=== PATIENT | female | born 1940 | race Caucasian/White ===

== ENCOUNTER 2018-03-30 13:50 | Inpatient (IN) | payer MEDICARE, OTHER | END 2018-04-09 18:20 | LOC: WEST WING 04-04 12:04 → ER 13:50 → TELE-WESTW 03-31 06:41 → OVERFLOW 17:24 → WEST WING 22:22 | PROC: 0WQF0ZZ Repair Abdominal Wall, Open Approach (ICD-10-PCS; principal; 2018-03-31 14:31) | DX: K43.2 Incisional hernia without obstruction or gangrene (principal); N39.0 Urinary tract infection, site not specified; I10 Essential (primary) hypertension; E11.9 Type 2 diabetes mellitus without complications; E03.9 Hypothyroidism, unspecified; E66.9 Obesity, unspecified; M19.012 Primary osteoarthritis, left shoulder ==

== ENCOUNTER 2018-06-02 06:58 | Emergency (ER) | payer MEDICARE, OTHER ==
[~2018-06-02] VITALS: Ht 162.6 cm; Wt 81.6 kg
[~2018-06-02 06:58] MED LIST: LEVO25TA6 PO; METF-370 PO; METO25TA4 PO; ONDA-155 PO
[2018-06-02 08:30] LABS: Urine Bacteria FEW /hpf (None Seen); Urine Blood Negative /uL (Negative); Urine Hyaline Cast FEW /lpf (0 - 2); Urine Mucus FEW (None Seen); Urine Specific Gravity 1.019 (1.001-1.035); Urine WBC 4 /hpf (0 - 5)
[2018-06-02 08:31] LABS: Basophils # (auto) 0.1 uL; Basophils % (auto) 0.8 % (0.0-2.0); Eosinophils # (auto) 0 uL; Eosinophils % (auto) 0.5 % (0.0-7.0); Hematocrit 33.4 % (36.0-46.0); Hemoglobin 10.7 g/dL (12.2-16.2); Lymphocytes % (auto) 10.7 % (10.0-50.0); Mean Corpuscular Hemoglobin 27.9 pg (28.0-32.0); Mean Corpuscular Hgb Conc. 31.9 g/dL (32.0-36.0); Mean Corpuscular Volume 87.5 fL (80.0-100.0); Monocytes # (auto) 0.4 uL; Monocytes % (auto) 4.2 % (0.0-12.0); Neutrophils # (auto) 8.1 uL; Neutrophils % (auto) 83.8 % (37.0-80.0); Platelet Count (auto) 252 10^3/uL (140-450); Red Blood Cells 3.82 10^6/uL (4.0-5.20); Red Cell Distribution Width 15.8 % (11.8-14.3); White Blood Cell 9.6 10^3/uL (4.4-10.8)
[2018-06-02 08:41] LABS: Albumin 3.1 g/dL (3.4-5.0); Calcium 8.6 mg/dL (8.5-10.1); Potassium 4.4 mmol/L (3.5-5.1)
[2018-06-02 08:44] LABS: BUN/Creatinine Ratio 17.2; Bilirubin, Total 0.4 mg/dL (0.2-1.0); Total Protein 7.6 g/dL (6.4-8.2)
[2018-06-02] MEDS ORDERED: SODIUM CHLORIDE 0.9% 1,000 ML IV ONE (09:48)
[2018-06-02] MEDS ORDERED: GASTROGRAFIN 30 ML SOL ONE (09:56)
[2018-06-02] MEDS ORDERED: IOHEXOL 300 MG/ML 100ML BOTTLE IJ ONE ×2 (09:56→12:12)
[2018-06-02] MEDS ORDERED: HYDROmorphone HCL 2 MG/ML VL IV ONE (10:00)
[2018-06-02] MEDS ORDERED: PROMETHAZINE HCL 25 MG/ML 1ML IV PRN (10:00)
[2018-06-02 10:08] LABS: Magnesium 1.1 mg/dL (1.6-2.6)
[2018-06-02] MEDS ORDERED: cefTRIAXone 1GM/50ML D5W 50 ML IV ONE (12:30)
[2018-06-02] MEDS: MAGNESIUM SULFATE 1GM/100ML 100 ML IV SCH ×3 (12:54→14:07)
[2018-06-02 14:16] VITALS: BP 122/75
== END 2018-06-02 14:16 | disposition home or self-care (01) ==
LOC: ER 06:58
DX: N39.0 Urinary tract infection, site not specified (principal); E83.42 Hypomagnesemia; K46.9 Unspecified abdominal hernia without obstruction or gangrene; E11.9 Type 2 diabetes mellitus without complications; I10 Essential (primary) hypertension; E07.9 Disorder of thyroid, unspecified; Z98.51 Tubal ligation status
CPT/HCPCS: 36415; 74177; 80053; 81001; 83690; 83735; 84443; 85025; 93005; 96361; 96374; 96375; 99284; J1170; J2550; J3475; J7030; Q9963; Q9967

== ENCOUNTER 2021-01-13 16:11 | Inpatient (IN) | payer MEDICARE, OTHER ==
[~2021-01-13] VITALS: Ht 162.6 cm; Wt 108.9 kg
[~2021-01-13 16:11] MED LIST changes: +METO25TA36 PO; -METO25TA4 PO
[2021-01-13] MEDS ORDERED: PIPERACILLIN-TAZOB 3.375GM 100 ML IV ONE (17:45)
[2021-01-13] MEDS ORDERED: metroNIDAZOLE 500MG/100ML 100 ML IV ONE (17:45)
[2021-01-13 17:49] LABS: Basophils # (auto) 0.1 10 ^3/uL (0-0.2); Basophils % (auto) 1.8 % (0.0-2.0); Eosinophils # (auto) 0.1 10 ^3/uL (0-0.8); Eosinophils % (auto) 1.7 % (0.0-7.0); Hematocrit 32.2 % (36.0-46.0); Hemoglobin 10.6 g/dL (12.2-16.2); Lymphocytes # (auto) 1.3 10 ^3/uL (0.4-5.4); Lymphocytes % (auto) 16.8 % (10.0-50.0); Mean Corpuscular Hgb Conc. 32.9 g/dL (32.0-36.0); Mean Corpuscular Volume 97.4 fL (80.0-100.0); Monocytes # (auto) 0.4 10 ^3/uL (0-1.3); Monocytes % (auto) 4.8 % (0.0-12.0); Neutrophils # (auto) 5.8 10 ^3/uL (1.6-8.6); Neutrophils % (auto) 74.9 % (37.0-80.0); Nucleated Red Blood Cells % 0.1 %; Red Blood Cells 3.31 10^6/uL (4.0-5.20); Red Cell Distribution Width 16.4 % (11.8-14.3); White Blood Cell 7.8 10^3/uL (4.4-10.8)
[2021-01-13 18:01] LABS: INR 0.99 (0.9-1.15); Partial Thromboplastin Time 27.6 sec (23.6-33.0)
[2021-01-13 18:04] LABS: Albumin 3.1 g/dL (3.4-5.0); Anion Gap 5 (5-15); BUN/Creatinine Ratio 17.9; Blood Urea Nitrogen 19 mg/dL (7-18); Calcium 9.3 mg/dL (8.5-10.1); Carbon Dioxide 20 mmol/L (21-32); Chloride 110 mmol/L (98-107); GFR African American 64 mL/min; GFR Non-African American 53 mL/min; Glucose 181 mg/dL (74-106); Lipase 75 U/L (73-393); Potassium 4.9 mmol/L (3.5-5.1); Sodium 135 mmol/L (136-145)
[2021-01-13 18:13] LABS: Alanine Aminotransferase 27 U/L (13-56); Alkaline Phosphatase 112 U/L (45-117); Aspartate Aminotransferase 15 U/L (15-37); Bilirubin, Total 0.4 mg/dL (0.2-1.0); Total Protein 7.4 g/dL (6.4-8.2)
[2021-01-13] MEDS ORDERED: MIDAZOLAM HCL 2MG/2ML 2ml VIAL (1mg/ml) ONE (18:35)
[2021-01-13] MEDS ORDERED: ROCURONIUM 10MG/ML 10ML VIAL IV ONE (18:36)
[2021-01-13] MEDS ORDERED: fentaNYL CITRATE 5 ML ONE (18:36)
[2021-01-13] MEDS ORDERED: PROPOFOL 10 MG/ML 20 ML IV ONE (18:58)
[2021-01-13] MEDS ORDERED: ONDANSETRON HCL 4 MG/2 ML VIAL ONE (18:58)
[2021-01-13] MEDS ORDERED: LIDOCAINE 2% (LOCAL ANESTH.) PF 5ml SDV ONE (18:58)
[2021-01-13] MEDS ORDERED: cefTRIAXone 1GM/50ML D5W 50 ML IV ONE (20:00)
[2021-01-13] MEDS ORDERED: D5W/SOD CHL 0.45%/KCL 20MEQ 1,000 ML IV ONE (20:00)
[2021-01-13] MEDS ORDERED: HYDROmorphone HCL 2 MG/ML VL IV ONE (20:00)
[2021-01-13] MEDS ORDERED: NEOSTIGMINE 1 MG/ML INJ (10mg/10ML VIAL) ONE (20:14)
[2021-01-13] MEDS ORDERED: GLYCOPYRROLATE 0.2 MG/ML 1ML VIAL ONE (20:14)
[2021-01-13] MEDS ORDERED: HYDROmorphone HCL 2 MG/ML VL IV PRN ×2 (20:30)
[2021-01-13] MEDS ORDERED: ONDANSETRON HCL 4 MG/2 ML VIAL IV PRN (20:30)
[2021-01-13] MEDS ORDERED: NITROGLYCERIN 0.4 MG SL TAB SL PRN (20:45)
[2021-01-13] MEDS ORDERED: MORPHINE SULFATE INJECTION 2 MG/ML SYRG IV PRN (20:45)
[2021-01-13 21:21] VITALS: BP 149/78
[2021-01-13 22:00] VITALS: BP 149/78
[2021-01-14] MEDS ORDERED: HYDR-4833 (01:34)
[2021-01-14 05:00] VITALS: BP 138/77
[2021-01-14 08:00] VITALS: BP 156/81
[2021-01-14 08:30] VITALS: BP 148/88
[2021-01-14] MEDS ORDERED: ONDANSETRON HCL 4 MG/2 ML VIAL IV PRN (11:45)
[2021-01-14] MEDS ORDERED: HYDROmorphone HCL 2 MG/ML VL IV ONE (11:45)
[2021-01-14] MEDS ORDERED: FAMOTIDINE (10MG/ML) 2ML VL IV ONE (11:45)
[2021-01-14] MEDS ORDERED: DEXTROSE (50%) 50ML SYRG IV PRN (11:45)
[2021-01-14 12:30] VITALS: BP_SYST 152; BP_SYST 153; BP_DIAS 85; BP_DIAS 95
[2021-01-14] MEDS: ACCU-CHEK COMFORT CURVE STRIP VI SCH ×3 (13:30→23:55)
[2021-01-14 13:55] LABS: Urine Bacteria NONE SEEN /hpf (None Seen); Urine Blood Negative /uL (Negative); Urine Mucus FEW (None Seen); Urine Specific Gravity 1.018 (1.001-1.035); Urine WBC 1 /hpf (0 - 5)
[2021-01-14] MEDS: metroNIDAZOLE 500MG/100ML 100 ML IV SCH ×2 (13:59→21:18)
[2021-01-14] MEDS: SODIUM CHLORIDE 0.9% 1,000 ML IV SCH (13:59)
[2021-01-14] MEDS: InsuLIN REG 1unit/0.01ml Soln (100units/ml) SC SCH ×3 (14:39→23:55)
[2021-01-14] MEDS: LABETALOL HCL 5 MG/ML 4ML SYRINGE IV PRN (16:19)
[2021-01-14] MEDS: HYDROmorphone HCL 2 MG/ML VL IV PRN ×2 (16:20→21:19)
[2021-01-14 17:00] VITALS: BP_SYST 151; BP_SYST 170; BP_DIAS 81; BP_DIAS 87
[2021-01-14 22:00] VITALS: BP 148/69
[2021-01-15] MEDS: HYDROmorphone HCL 2 MG/ML VL IV PRN ×4 (01:25→21:34)
[2021-01-15 05:00] VITALS: BP 156/74
[2021-01-15] MEDS: InsuLIN REG 1unit/0.01ml Soln (100units/ml) SC SCH ×4 (06:16→23:27)
[2021-01-15] MEDS: metroNIDAZOLE 500MG/100ML 100 ML IV SCH ×3 (06:16→21:34)
[2021-01-15] MEDS: SODIUM CHLORIDE 0.9% 1,000 ML IV SCH ×2 (06:17→14:03)
[2021-01-15] MEDS: ACCU-CHEK COMFORT CURVE STRIP VI SCH ×4 (06:17→23:28)
[2021-01-15 06:46] LABS: Basophils # (auto) 0 10 ^3/uL (0-0.2); Basophils % (auto) 0.4 % (0.0-2.0); Eosinophils # (auto) 0 10 ^3/uL (0-0.8); Eosinophils % (auto) 0.1 % (0.0-7.0); Hematocrit 27.1 % (36.0-46.0); Lymphocytes # (auto) 1.1 10 ^3/uL (0.4-5.4); Lymphocytes % (auto) 10.5 % (10.0-50.0); Mean Corpuscular Hemoglobin 32.4 pg (28.0-32.0); Mean Corpuscular Volume 98.1 fL (80.0-100.0); Monocytes # (auto) 1.3 10 ^3/uL (0-1.3); Monocytes % (auto) 12.1 % (0.0-12.0); Neutrophils # (auto) 8.1 10 ^3/uL (1.6-8.6); Neutrophils % (auto) 76.9 % (37.0-80.0); Nucleated Red Blood Cells % 0.1 %; Red Blood Cells 2.76 10^6/uL (4.0-5.20); Red Cell Distribution Width 15.9 % (11.8-14.3); White Blood Cell 10.6 10^3/uL (4.4-10.8)
[2021-01-15 07:02] LABS: Calcium 8.2 mg/dL (8.5-10.1); Potassium 4.3 mmol/L (3.5-5.1)
[2021-01-15 07:08] LABS: Albumin 2.3 g/dL (3.4-5.0); BUN/Creatinine Ratio 15.2; Bilirubin, Total 0.6 mg/dL (0.2-1.0); Total Protein 6.1 g/dL (6.4-8.2)
[2021-01-15 08:00] VITALS: BP 155/77
[2021-01-15 09:00] VITALS: BP 155/77
[2021-01-15] MEDS: FAMOTIDINE (10MG/ML) 2ML VL IV SCH (09:27)
[2021-01-15] MEDS: cefTRIAXone 1GM/50ML D5W 50 ML IV SCH (09:27)
[2021-01-15] MEDS: LABETALOL HCL 5 MG/ML 4ML SYRINGE IV PRN ×2 (10:40→18:03)
[2021-01-15 13:00] VITALS: BP 150/66
[2021-01-15] MEDS ORDERED: KETOROLAC TROMETH 30 MG/ML 1ML VIAL IV ONE (13:15)
[2021-01-15 17:00] VITALS: BP 155/78
[2021-01-15 21:00] VITALS: BP 149/74
[2021-01-15] MEDS: KETOROLAC TROMETH 30 MG/ML 1ML VIAL IV SCH (21:34)
[2021-01-16] MEDS: SODIUM CHLORIDE 0.9% 1,000 ML IV SCH ×2 (01:39→17:19)
[2021-01-16 05:00] VITALS: BP 147/82
[2021-01-16] MEDS: ACCU-CHEK COMFORT CURVE STRIP VI SCH ×3 (05:57→17:25)
[2021-01-16] MEDS: metroNIDAZOLE 500MG/100ML 100 ML IV SCH ×3 (05:57→23:00)
[2021-01-16] MEDS: KETOROLAC TROMETH 30 MG/ML 1ML VIAL IV SCH (05:57)
[2021-01-16] MEDS: InsuLIN REG 1unit/0.01ml Soln (100units/ml) SC SCH ×3 (06:13→17:25)
[2021-01-16 06:38] LABS: Basophils # (auto) 0 10 ^3/uL (0-0.2); Eosinophils # (auto) 0.1 10 ^3/uL (0-0.8); Eosinophils % (auto) 0.8 % (0.0-7.0); Mean Corpuscular Volume 101.3 fL (80.0-100.0); Red Cell Distribution Width 16.1 % (11.8-14.3)
[2021-01-16 06:45] LABS: Basophils % (auto) 0.4 % (0.0-2.0); Hematocrit 26.8 % (36.0-46.0); Hemoglobin 8.3 g/dL (12.2-16.2); Lymphocytes % (auto) 8.5 % (10.0-50.0); Mean Corpuscular Hemoglobin 31.6 pg (28.0-32.0); Mean Corpuscular Hgb Conc. 31.1 g/dL (32.0-36.0); Monocytes % (auto) 8.1 % (0.0-12.0); Neutrophils # (auto) 9.8 10 ^3/uL (1.6-8.6); Neutrophils % (auto) 82.2 % (37.0-80.0); Potassium 4.5 mmol/L (3.5-5.1); Red Blood Cells 2.64 10^6/uL (4.0-5.20); White Blood Cell 11.9 10^3/uL (4.4-10.8)
[2021-01-16 06:48] LABS: BUN/Creatinine Ratio 19.8
[2021-01-16 08:00] VITALS: BP 160/76
[2021-01-16] MEDS: cefTRIAXone 1GM/50ML D5W 50 ML IV SCH (09:38)
[2021-01-16] MEDS: FAMOTIDINE (10MG/ML) 2ML VL IV SCH (09:38)
[2021-01-16] MEDS: LABETALOL HCL 5 MG/ML 4ML SYRINGE IV PRN (09:39)
[2021-01-16] MEDS: HYDROmorphone HCL 2 MG/ML VL IV PRN ×2 (13:54→21:30)
[2021-01-16 17:28] VITALS: BP 135/71
[2021-01-16 20:00] VITALS: BP 137/75
[2021-01-16 22:00] VITALS: BP 137/76
[2021-01-17] MEDS: metroNIDAZOLE 500MG/100ML 100 ML IV SCH ×3 (05:53→22:27)
[2021-01-17] MEDS: InsuLIN REG 1unit/0.01ml Soln (100units/ml) SC SCH ×4 (06:00→19:12)
[2021-01-17] MEDS: HYDROmorphone HCL 2 MG/ML VL IV PRN ×4 (06:10→21:07)
[2021-01-17] MEDS: ACCU-CHEK COMFORT CURVE STRIP VI SCH ×4 (06:17→18:00)
[2021-01-17 06:22] LABS: Basophils # (auto) 0.1 10 ^3/uL (0-0.2); Basophils % (auto) 0.6 % (0.0-2.0); Eosinophils # (auto) 0.3 10 ^3/uL (0-0.8); Eosinophils % (auto) 2.7 % (0.0-7.0); Lymphocytes # (auto) 1.1 10 ^3/uL (0.4-5.4); Lymphocytes % (auto) 10.7 % (10.0-50.0); Mean Corpuscular Hemoglobin 32.1 pg (28.0-32.0); Mean Corpuscular Hgb Conc. 32.1 g/dL (32.0-36.0); Mean Corpuscular Volume 100.1 fL (80.0-100.0); Monocytes # (auto) 0.7 10 ^3/uL (0-1.3); Neutrophils # (auto) 8.2 10 ^3/uL (1.6-8.6); Nucleated Red Blood Cells % 0.2 %; Red Cell Distribution Width 15.7 % (11.8-14.3); White Blood Cell 10.4 10^3/uL (4.4-10.8)
[2021-01-17] MEDS: SODIUM CHLORIDE 0.9% 1,000 ML IV SCH (06:25)
[2021-01-17 06:51] LABS: Calcium 8.2 mg/dL (8.5-10.1); Potassium 4.3 mmol/L (3.5-5.1)
[2021-01-17 06:55] LABS: BUN/Creatinine Ratio 26.7
[2021-01-17 09:00] VITALS: BP 144/71
[2021-01-17] MEDS: cefTRIAXone 1GM/50ML D5W 50 ML IV SCH (09:51)
[2021-01-17] MEDS: FAMOTIDINE (10MG/ML) 2ML VL IV SCH (09:51)
[2021-01-17 17:00] VITALS: BP 143/75
[2021-01-17] MEDS ORDERED: PANTOPRAZOLE 40 MG/10 ML VIAL INJ IV ONE (18:45)
[2021-01-17 20:00] VITALS: BP 137/71
[2021-01-17 22:00] VITALS: BP 137/71
[2021-01-18] MEDS: ACCU-CHEK COMFORT CURVE STRIP VI SCH ×5 (00:18→22:18)
[2021-01-18] MEDS: InsuLIN REG 1unit/0.01ml Soln (100units/ml) SC SCH ×5 (00:22→22:22)
[2021-01-18 05:00] VITALS: BP 143/78
[2021-01-18] MEDS: metroNIDAZOLE 500MG/100ML 100 ML IV SCH ×3 (06:00→22:17)
[2021-01-18 07:09] LABS: Basophils # (auto) 0.1 10 ^3/uL (0-0.2); Basophils % (auto) 0.7 % (0.0-2.0); Eosinophils # (auto) 0.3 10 ^3/uL (0-0.8); Eosinophils % (auto) 3.2 % (0.0-7.0); Hematocrit 23.4 % (36.0-46.0); Hemoglobin 7.7 g/dL (12.2-16.2); Lymphocytes # (auto) 1.4 10 ^3/uL (0.4-5.4); Lymphocytes % (auto) 16.5 % (10.0-50.0); Mean Corpuscular Hemoglobin 32.9 pg (28.0-32.0); Mean Corpuscular Hgb Conc. 32.8 g/dL (32.0-36.0); Mean Corpuscular Volume 100.1 fL (80.0-100.0); Monocytes # (auto) 0.7 10 ^3/uL (0-1.3); Monocytes % (auto) 8.4 % (0.0-12.0); Neutrophils % (auto) 71.2 % (37.0-80.0); Nucleated Red Blood Cells % 0.1 %; Red Blood Cells 2.34 10^6/uL (4.0-5.20); Red Cell Distribution Width 15.5 % (11.8-14.3); White Blood Cell 8.4 10^3/uL (4.4-10.8)
[2021-01-18 07:16] LABS: Calcium 8.3 mg/dL (8.5-10.1); Potassium 3.8 mmol/L (3.5-5.1)
[2021-01-18 09:00] VITALS: BP 138/101
[2021-01-18] MEDS ORDERED: BRIM0.1S3 (09:30)
[2021-01-18] MEDS ORDERED: ATOR20TA50 PO (09:30)
[2021-01-18] MEDS ORDERED: SITA50TA PO (09:30)
[2021-01-18] MEDS ORDERED: LISI20TA28 PO (09:30)
[2021-01-18] MEDS: cefTRIAXone 1GM/50ML D5W 50 ML IV SCH (09:39)
[2021-01-18] MEDS ORDERED: PANTOPRAZOLE 40 MG/10 ML VIAL INJ IV SCH (10:00)
[2021-01-18] MEDS: HYDROmorphone HCL 2 MG/ML VL IV PRN (11:54)
[2021-01-18 13:00] VITALS: BP 155/81
[2021-01-18 17:00] VITALS: BP 155/88
[2021-01-18] MEDS ORDERED: HYDROcodone-ACET 5/325MG TAB PO PRN (18:00)
[2021-01-18] MEDS ORDERED: LISINOPRIL 20 MG TAB PO ONE (19:00)
[2021-01-18 22:00] VITALS: BP 143/71
[2021-01-18] MEDS: ATORVASTATIN 20 MG TAB PO SCH (22:17)
[2021-01-18] MEDS: METOPROLOL TARTRATE 25 MG TAB PO SCH (22:18)
[2021-01-19 02:29] LABS: Hematocrit 22.6 % (36.0-46.0); Hemoglobin 7.5 g/dL (12.2-16.2)
[2021-01-19] MEDS: HYDROmorphone HCL 2 MG/ML VL IV PRN ×3 (04:48→22:25)
[2021-01-19 05:00] VITALS: BP 161/80
[2021-01-19 05:50] LABS: Hemoglobin 7.9 g/dL (12.2-16.2)
[2021-01-19 05:53] LABS: Hematocrit 24.1 % (36.0-46.0)
[2021-01-19] MEDS: InsuLIN REG 1unit/0.01ml Soln (100units/ml) SC SCH ×4 (06:00→22:25)
[2021-01-19] MEDS: ACCU-CHEK COMFORT CURVE STRIP VI SCH ×4 (06:01→22:24)
[2021-01-19] MEDS: metroNIDAZOLE 500MG/100ML 100 ML IV SCH ×3 (06:02→22:23)
[2021-01-19 09:00] VITALS: BP 146/70
[2021-01-19] MEDS: METOPROLOL TARTRATE 25 MG TAB PO SCH ×2 (09:29→22:24)
[2021-01-19] MEDS: cefTRIAXone 1GM/50ML D5W 50 ML IV SCH (09:29)
[2021-01-19 12:04] LABS: Hemoglobin 7.9 g/dL (12.2-16.2)
[2021-01-19 12:08] LABS: Hematocrit 23.7 % (36.0-46.0)
[2021-01-19 13:00] VITALS: BP 160/69
[2021-01-19 17:00] VITALS: BP 147/89
[2021-01-19 22:15] VITALS: BP 159/79
[2021-01-19] MEDS: ATORVASTATIN 20 MG TAB PO SCH (22:23)
[2021-01-19] MEDS: LISINOPRIL 20 MG TAB PO SCH (22:24)
[2021-01-20 04:58] VITALS: BP 150/82
[2021-01-20 05:15] LABS: Hematocrit 25.3 % (36.0-46.0); Hemoglobin 8.3 g/dL (12.2-16.2)
[2021-01-20 05:43] LABS: BUN/Creatinine Ratio 20.5; Calcium 8.3 mg/dL (8.5-10.1); Magnesium 1.3 mg/dL (1.6-2.6); Potassium 4.1 mmol/L (3.5-5.1)
[2021-01-20] MEDS: ACCU-CHEK COMFORT CURVE STRIP VI SCH ×4 (05:57→23:43)
[2021-01-20] MEDS: metroNIDAZOLE 500MG/100ML 100 ML IV SCH ×3 (05:58→22:18)
[2021-01-20] MEDS: InsuLIN REG 1unit/0.01ml Soln (100units/ml) SC SCH ×4 (05:58→23:42)
[2021-01-20 09:00] VITALS: BP 175/71
[2021-01-20] MEDS: cefTRIAXone 1GM/50ML D5W 50 ML IV SCH (09:41)
[2021-01-20] MEDS: METOPROLOL TARTRATE 25 MG TAB PO SCH ×2 (09:42→22:15)
[2021-01-20 12:00] VITALS: BP 160/77
[2021-01-20] MEDS: MAGNESIUM SULFATE 1GM/100ML 100 ML IV SCH ×2 (15:41→17:40)
[2021-01-20 16:00] VITALS: BP 155/77
[2021-01-20 22:00] VITALS: BP 157/73
[2021-01-20] MEDS: ATORVASTATIN 20 MG TAB PO SCH (22:13)
[2021-01-20] MEDS: LISINOPRIL 20 MG TAB PO SCH (22:15)
[2021-01-21 05:00] VITALS: BP 174/76
[2021-01-21] MEDS: metroNIDAZOLE 500MG/100ML 100 ML IV SCH (05:12)
[2021-01-21] MEDS: ACCU-CHEK COMFORT CURVE STRIP VI SCH ×3 (05:12→17:34)
[2021-01-21] MEDS: InsuLIN REG 1unit/0.01ml Soln (100units/ml) SC SCH ×3 (05:56→17:41)
[2021-01-21 06:37] LABS: Hemoglobin 8.2 g/dL (12.2-16.2)
[2021-01-21 06:41] LABS: Hematocrit 24.6 % (36.0-46.0)
[2021-01-21 07:04] LABS: Potassium 3.4 mmol/L (3.5-5.1)
[2021-01-21 07:08] LABS: Magnesium 1.5 mg/dL (1.6-2.6)
[2021-01-21 08:00] VITALS: BP 182/93
[2021-01-21] MEDS: cefTRIAXone 1GM/50ML D5W 50 ML IV SCH (08:11)
[2021-01-21] MEDS: METOPROLOL TARTRATE 25 MG TAB PO SCH (08:12)
[2021-01-21] MEDS: hydrALAZINE HCL 20 MG/ML VL IV PRN ×2 (09:49→16:22)
[2021-01-21 12:00] VITALS: BP 157/59
[2021-01-21] MEDS ORDERED: POTASSIUM CHL 20 Meq TABLET PO ONE (12:15)
[2021-01-21 16:00] VITALS: BP 159/68
[2021-01-21 18:02] VITALS: BP 146/62
== END 2021-01-21 19:52 | DRG 330 ==
LOC: ER 16:11 → OVERFLOW 20:31 → WEST WING 21:21
PROVIDERS: ADMIT Nurse Practitioner Family; ATTEND Internal Medicine
PROC: 0WQF0ZZ Repair Abdominal Wall, Open Approach (ICD-10-PCS; 2021-01-13)
PROC: 0DB80ZZ Excision of Small Intestine, Open Approach (ICD-10-PCS; principal; 2021-01-13 18:55)
DX: K56.609 Unspecified intestinal obstruction, unspecified as to partial versus complete obstruction (principal); K43.6 Other and unspecified ventral hernia with obstruction, without gangrene; I10 Essential (primary) hypertension; E03.9 Hypothyroidism, unspecified; D64.9 Anemia, unspecified; E11.9 Type 2 diabetes mellitus without complications; Z20.822 Contact with and (suspected) exposure to COVID-19; E66.01 Morbid (severe) obesity due to excess calories; M17.12 Unilateral primary osteoarthritis, left knee; Z83.3 Family history of diabetes mellitus; Z68.39 Body mass index [BMI] 39.0-39.9, adult
CPT/HCPCS: 36415; 71045; 74176; 80048; 80053; 81001; 82962; 83036; 83605; 83690; 83735; 84132; 84443; 84484; 85014; 85018; 85025; 85610; 85730; 86850; 86900; 86901; 87040; 87426; 88302; 93005; 93971; 96365; 96375; 97110; 97116; 97163; 97530; C9113; G0378; J0696; J1815; J1885; J2001; J2250; J2405; J2543; J2704; J3490

== ENCOUNTER 2021-03-07 09:35 | Inpatient (IN) | payer MEDICARE, OTHER ==
[~2021-03-07] VITALS: Ht 162.6 cm; Wt 81.1 kg
[~2021-03-07 09:35] MED LIST changes: +ATOR20TA50 PO; +BRIM0.1S3; +HYDR-4833; +LISI20TA28 PO; +SITA50TA PO
[2021-03-07 10:41] LABS: Basophils # (auto) 0.1 10 ^3/uL (0-0.2); Basophils % (auto) 0.9 % (0.0-2.0); Eosinophils # (auto) 0.1 10 ^3/uL (0-0.8); Eosinophils % (auto) 0.9 % (0.0-7.0); Hematocrit 31.1 % (36.0-46.0); Hemoglobin 9.9 g/dL (12.2-16.2); Lymphocytes # (auto) 2.2 10 ^3/uL (0.4-5.4); Lymphocytes % (auto) 34.6 % (10.0-50.0); Mean Corpuscular Hemoglobin 29.6 pg (28.0-32.0); Mean Corpuscular Hgb Conc. 31.9 g/dL (32.0-36.0); Mean Corpuscular Volume 92.8 fL (80.0-100.0); Monocytes # (auto) 0.5 10 ^3/uL (0-1.3); Monocytes % (auto) 7.7 % (0.0-12.0); Neutrophils # (auto) 3.5 10 ^3/uL (1.6-8.6); Neutrophils % (auto) 55.9 % (37.0-80.0); Nucleated Red Blood Cells % 0.1 %; Red Blood Cells 3.36 10^6/uL (4.0-5.20); Red Cell Distribution Width 15.6 % (11.8-14.3); White Blood Cell 6.3 10^3/uL (4.4-10.8)
[2021-03-07 10:56] LABS: Potassium 5.2 mmol/L (3.5-5.1)
[2021-03-07 11:06] LABS: Albumin 3.5 g/dL (3.4-5.0); BUN/Creatinine Ratio 39.8; Bilirubin, Total 0.4 mg/dL (0.2-1.0); Calcium 8.9 mg/dL (8.5-10.1)
[2021-03-07] MEDS ORDERED: CALCIUM GLUC 1,000mg/50ml-NS 50 ML IV ONE (13:30)
[2021-03-07] MEDS ORDERED: FUROSEMIDE 20 MG/2 ML VIAL IV ONE (13:30)
[2021-03-07] MEDS ORDERED: SODIUM ZIRCONIUM CYCL 10 GM PAK PO ONE (13:30)
[2021-03-07] MEDS ORDERED: ALBUTEROL SULF 2.5 MG/0.5ML(0.5%) NEB SOLN NEB ONE (13:30)
[2021-03-07] MEDS ORDERED: SODIUM BICARBONATE 8.4% INJ 50ML SYRINGE IV ONE (13:30)
[2021-03-07] MEDS ORDERED: DEXTROSE 50% SYRINGE 50 ML IV ONE (16:37)
[2021-03-07] MEDS ORDERED: InsuLIN REG 1unit/0.01ml Soln (100units/ml) ONE (16:38)
[2021-03-07] MEDS ORDERED: InsuLIN REG 1unit/0.01ml Soln (100units/ml) IV ONE (16:45)
[2021-03-07] MEDS ORDERED: DEXTROSE (50%) 50ML SYRG IV ONE (16:45)
[2021-03-07] MEDS ORDERED: ACETAMINOPHEN 325 MG TAB PO PRN (23:15)
[2021-03-07] MEDS ORDERED: hydrALAZINE HCL 20 MG/ML VL IV PRN (23:15)
[2021-03-07] MEDS ORDERED: ONDANSETRON HCL 4 MG/2 ML VIAL IV PRN (23:15)
[2021-03-07] MEDS ORDERED: DOCUSATE SOD 100 MG CAP PO PRN (23:15)
[2021-03-07] MEDS ORDERED: DEXTROSE (50%) 50ML SYRG IV PRN (23:15)
[2021-03-07] MEDS ORDERED: HYDROcodone-ACET 5/325MG TAB PO PRN (23:15)
[2021-03-08] MEDS ORDERED: NITROGLYCERIN 0.4 MG SL TAB SL PRN
[2021-03-08] MEDS ORDERED: MORPHINE SULFATE INJECTION 2 MG/ML SYRG IV PRN
[2021-03-08] MEDS: SODIUM CHLORIDE 0.9% 1,000 ML IV SCH ×2 (03:05→18:34)
[2021-03-08 05:41] LABS: Basophils # (auto) 0 10 ^3/uL (0-0.2); Basophils % (auto) 0.6 % (0.0-2.0); Eosinophils # (auto) 0.1 10 ^3/uL (0-0.8); Eosinophils % (auto) 0.8 % (0.0-7.0); Hematocrit 26.8 % (36.0-46.0); Hemoglobin 8.8 g/dL (12.2-16.2); Lymphocytes # (auto) 2.2 10 ^3/uL (0.4-5.4); Mean Corpuscular Hgb Conc. 32.8 g/dL (32.0-36.0); Mean Corpuscular Volume 91.2 fL (80.0-100.0); Monocytes # (auto) 0.6 10 ^3/uL (0-1.3); Monocytes % (auto) 8.2 % (0.0-12.0); Neutrophils # (auto) 4.7 10 ^3/uL (1.6-8.6); Neutrophils % (auto) 61.4 % (37.0-80.0); Red Blood Cells 2.94 10^6/uL (4.0-5.20); Red Cell Distribution Width 15.4 % (11.8-14.3); White Blood Cell 7.7 10^3/uL (4.4-10.8)
[2021-03-08 05:57] LABS: Albumin 3.1 g/dL (3.4-5.0); Calcium 8.8 mg/dL (8.5-10.1); Potassium 4.4 mmol/L (3.5-5.1)
[2021-03-08 06:04] LABS: BUN/Creatinine Ratio 41.6; Bilirubin, Total 0.4 mg/dL (0.2-1.0); Total Protein 6.7 g/dL (6.4-8.2)
[2021-03-08] MEDS: ACCU-CHEK COMFORT CURVE STRIP VI SCH ×4 (07:08→21:33)
[2021-03-08] MEDS: InsuLIN REG 1unit/0.01ml Soln (100units/ml) SC SCH ×3 (07:08→17:39)
[2021-03-08] MEDS: LEVOTHYROXINE SODIUM 25 MCG TAB PO SCH (07:08)
[2021-03-08 09:00] VITALS: BP 148/67
[2021-03-08] MEDS ORDERED: ZINC SULFATE 220mg CAP or TAB PO SCH (10:00)
[2021-03-08] MEDS ORDERED: ASCORBIC ACID 500 MG TAB PO SCH (10:00)
[2021-03-08] MEDS: FAMOTIDINE (10MG/ML) 2ML VL IV SCH (11:14)
[2021-03-08] MEDS: MULTIPLE VITAMIN TAB PO SCH (11:58)
[2021-03-08 13:00] VITALS: BP 135/69
[2021-03-08] MEDS ORDERED: ERGOCALCIFEROL 50,000 UNIT(1.25MG) CAP PO SCH (15:30)
[2021-03-08 17:00] VITALS: BP 113/73
[2021-03-08 18:40] LABS: Protein, Urine 24.6 mg/dL (0.0-11.9)
[2021-03-08 18:49] LABS: Urine Bacteria NONE SEEN /hpf (None Seen); Urine Blood Negative /uL (Negative); Urine Hyaline Cast FEW /lpf (0 - 2); Urine Mucus FEW (None Seen); Urine Specific Gravity 1.022 (1.001-1.035); Urine WBC 20 /hpf (0 - 5)
[2021-03-08 22:00] VITALS: BP 133/71
[2021-03-08] MEDS ORDERED: InsuLIN REG 1unit/0.01ml Soln (100units/ml) SC SCH (22:00)
[2021-03-09 05:00] VITALS: BP 135/70
[2021-03-09] MEDS: InsuLIN REG 1unit/0.01ml Soln (100units/ml) SC SCH ×2 (06:03→11:12)
[2021-03-09] MEDS: ACCU-CHEK COMFORT CURVE STRIP VI SCH ×2 (06:03→11:12)
[2021-03-09] MEDS: LEVOTHYROXINE SODIUM 25 MCG TAB PO SCH (06:03)
[2021-03-09] MEDS: SODIUM CHLORIDE 0.9% 1,000 ML IV SCH (06:44)
[2021-03-09] MEDS: MULTIPLE VITAMIN TAB PO SCH (08:27)
[2021-03-09] MEDS: FAMOTIDINE (10MG/ML) 2ML VL IV SCH (08:27)
[2021-03-09 09:00] VITALS: BP 122/78
[2021-03-09 11:34] LABS: Calcium 8.5 mg/dL (8.5-10.1)
[2021-03-09 11:44] LABS: Potassium 4.4 mmol/L (3.5-5.1)
[2021-03-09 12:59] VITALS: BP 153/86
[2021-03-09] MEDS ORDERED: ERGO1CAP23 PO (14:29)
== END 2021-03-09 16:06 | disposition home or self-care (01) | DRG 640 ==
LOC: ER 09:35 → OVERFLOW 23:47 → WEST WING 03-08 10:48
PROVIDERS: ADMIT Nurse Practitioner Family; ATTEND Internal Medicine
DX: E87.5 Hyperkalemia (principal); N17.0 Acute kidney failure with tubular necrosis; E87.2 Acidosis; E11.65 Type 2 diabetes mellitus with hyperglycemia; Z20.822 Contact with and (suspected) exposure to COVID-19; D63.1 Anemia in chronic kidney disease; E03.9 Hypothyroidism, unspecified; E11.22 Type 2 diabetes mellitus with diabetic chronic kidney disease; E55.9 Vitamin D deficiency, unspecified; I12.9 Hypertensive chronic kidney disease with stage 1 through stage 4 chronic kidney disease, or unspecified chronic kidney disease; N18.30 Chronic kidney disease, stage 3 unspecified; Z83.3 Family history of diabetes mellitus
CPT/HCPCS: 36415; 76775; 80048; 80053; 80061; 81001; 82306; 82570; 82962; 83036; 84132; 84156; 84300; 84443; 84484; 85025; 87426; 93005; 93971; 94640; 96365; 96375; 99291; G0378; J1815; J3490

== ENCOUNTER 2022-05-11 12:58 | Inpatient (IN) | payer MEDICARE, OTHER ==
[~2022-05-11] VITALS: Ht 162.6 cm; Wt 77.5 kg
[~2022-05-11 12:58] MED LIST changes: +ERGO1CAP23 PO; -LISI20TA28 PO; -ONDA-155 PO
[2022-05-11] MEDS ORDERED: TRAM-297 PO (16:22)
[2022-05-11] MEDS ORDERED: KETOROLAC TROMETH 30 MG/ML 1ML VIAL IM ONE (16:30)
[2022-05-11] MEDS ORDERED: ONDANSETRON HCL 4 MG/2 ML VIAL IV ONE (18:15)
[2022-05-11] MEDS ORDERED: MORPHINE SULFATE 4 MG/ML SYR/VIAL IV ONE (18:15)
[2022-05-11] MEDS ORDERED: HYDROcodone-ACET 5/325MG TAB PO PRN (21:00)
[2022-05-11] MEDS ORDERED: ACETAMINOPHEN 325 MG TAB PO PRN (21:00)
[2022-05-11] MEDS ORDERED: ALBUTEROL SULF 2.5 MG/0.5ML(0.5%) NEB SOLN NEB PRN (21:00)
[2022-05-11] MEDS ORDERED: DEXTROSE (50%) 50ML SYRG IV PRN (21:00)
[2022-05-11 21:12] LABS: Urine Bacteria NONE SEEN /hpf (None Seen); Urine Blood Negative /uL (Negative); Urine Mucus FEW (None Seen); Urine Specific Gravity 1.027 (1.001-1.035); Urine WBC 4 /hpf (0 - 5)
[2022-05-11] MEDS: InsuLIN REG 1unit/0.01ml Soln (100units/ml) SC SCH (22:00)
[2022-05-11] MEDS: ACCU-CHEK COMFORT CURVE STRIP VI SCH (22:08)
[2022-05-11 22:39] LABS: Basophils # (auto) 0.1 10 ^3/uL (0-0.2); Basophils % (auto) 0.8 % (0.0-2.0); Eosinophils # (auto) 0.2 10 ^3/uL (0-0.8); Eosinophils % (auto) 1.6 % (0.0-7.0); Hematocrit 26.7 % (36.0-46.0); Hemoglobin 8.7 g/dL (12.2-16.2); Lymphocytes # (auto) 1.9 10 ^3/uL (0.4-5.4); Lymphocytes % (auto) 20.5 % (10.0-50.0); Mean Corpuscular Hemoglobin 29.8 pg (28.0-32.0); Mean Corpuscular Hgb Conc. 32.8 g/dL (32.0-36.0); Mean Corpuscular Volume 90.8 fL (80.0-100.0); Monocytes # (auto) 0.6 10 ^3/uL (0-1.3); Monocytes % (auto) 5.9 % (0.0-12.0); Neutrophils # (auto) 6.7 10 ^3/uL (1.6-8.6); Neutrophils % (auto) 71.2 % (37.0-80.0); Nucleated Red Blood Cells % 0.1 %; Red Blood Cells 2.94 10^6/uL (4.0-5.20); Red Cell Distribution Width 17.4 % (11.8-14.3); White Blood Cell 9.4 10^3/uL (4.4-10.8)
[2022-05-11 22:53] LABS: Albumin 2.9 g/dL (3.4-5.0); BUN/Creatinine Ratio 21.1; Calcium 8.3 mg/dL (8.5-10.1); Potassium 4.1 mmol/L (3.5-5.1)
[2022-05-11 22:56] LABS: Bilirubin, Total 0.5 mg/dL (0.2-1.0); Total Protein 6.2 g/dL (6.4-8.2)
[2022-05-12] VITALS (7 sets, daily range): BP systolic 120–145; BP diastolic 55–64
[2022-05-12] MEDS: MORPHINE SULFATE INJ 2 MG/ml SYRG IV PRN ×4 (00:25→22:43)
[2022-05-12] MEDS: ACCU-CHEK COMFORT CURVE STRIP VI SCH ×4 (06:08→21:49)
[2022-05-12 06:14] LABS: BUN/Creatinine Ratio 21.5; Calcium 8.1 mg/dL (8.5-10.1); Potassium 3.9 mmol/L (3.5-5.1)
[2022-05-12] MEDS: InsuLIN REG 1unit/0.01ml Soln (100units/ml) SC SCH ×4 (06:26→22:19)
[2022-05-12] MEDS: LEVOTHYROXINE SODIUM 25 MCG TAB PO SCH (06:28)
[2022-05-12] MEDS: FUROSEMIDE 40 MG TAB PO SCH (10:26)
[2022-05-12] MEDS: METOPROLOL SUCCINATE XL 50 MG TAB PO SCH (10:27)
[2022-05-12] MEDS ORDERED: POLYETHYLENE GLYCOL 17 GM PWDR PO ONE (12:30)
[2022-05-12] MEDS ORDERED: cefTRIAXone 1GM/50ML D5W 50 ML IV ONE (12:30)
[2022-05-12] MEDS ORDERED: POLYETHYLENE GLYCOL 17 GM PWDR PO PRN (12:30)
[2022-05-12 14:27] LABS: Hepatitis C Antibody Negative (Negative)
[2022-05-12] MEDS: RIVAROXABAN 10 MG TAB PO SCH (18:38)
[2022-05-13 05:00] VITALS: BP 131/56
[2022-05-13 05:54] LABS: % Iron Saturation 9.1 % (15-50)
[2022-05-13 05:57] LABS: Albumin 2.6 g/dL (3.4-5.0); Calcium 8.1 mg/dL (8.5-10.1); Potassium 3.8 mmol/L (3.5-5.1)
[2022-05-13 06:02] LABS: BUN/Creatinine Ratio 21.8; Bilirubin, Total 0.8 mg/dL (0.2-1.0); Total Protein 6.1 g/dL (6.4-8.2)
[2022-05-13 06:05] LABS: Thyroid Stimulating Hormone 0.52 uIU/mL (0.358-3.74)
[2022-05-13] MEDS: InsuLIN REG 1unit/0.01ml Soln (100units/ml) SC SCH ×4 (06:07→22:07)
[2022-05-13] MEDS: ACCU-CHEK COMFORT CURVE STRIP VI SCH ×4 (06:07→22:01)
[2022-05-13 06:11] LABS: Basophils # (auto) 0.1 10 ^3/uL (0-0.2); Basophils % (auto) 0.6 % (0.0-2.0); Eosinophils # (auto) 0.3 10 ^3/uL (0-0.8); Eosinophils % (auto) 3.6 % (0.0-7.0); Hematocrit 26.2 % (36.0-46.0); Hemoglobin 8.9 g/dL (12.2-16.2); Lymphocytes # (auto) 1.6 10 ^3/uL (0.4-5.4); Lymphocytes % (auto) 18.2 % (10.0-50.0); Mean Corpuscular Hemoglobin 30.8 pg (28.0-32.0); Mean Corpuscular Hgb Conc. 34.1 g/dL (32.0-36.0); Mean Corpuscular Volume 90.4 fL (80.0-100.0); Monocytes # (auto) 0.7 10 ^3/uL (0-1.3); Monocytes % (auto) 7.8 % (0.0-12.0); Neutrophils # (auto) 6.3 10 ^3/uL (1.6-8.6); Neutrophils % (auto) 69.8 % (37.0-80.0); Nucleated Red Blood Cells % 0.2 %; Red Blood Cells 2.89 10^6/uL (4.0-5.20); Red Cell Distribution Width 16.9 % (11.8-14.3)
[2022-05-13] MEDS: LEVOTHYROXINE SODIUM 25 MCG TAB PO SCH (06:17)
[2022-05-13 07:57] LABS: Folate (Folic Acid) 13.75 ng/mL (5.38-24)
[2022-05-13] MEDS: cefTRIAXone 1GM/50ML D5W 50 ML IV SCH (08:42)
[2022-05-13] MEDS: FUROSEMIDE 40 MG TAB PO SCH (08:43)
[2022-05-13] MEDS: MORPHINE SULFATE INJ 2 MG/ml SYRG IV PRN ×2 (08:43→16:34)
[2022-05-13] MEDS: METOPROLOL SUCCINATE XL 50 MG TAB PO SCH (08:44)
[2022-05-13 08:46] VITALS: BP 154/66
[2022-05-13] MEDS ORDERED: CYANOCOBALAMIN (B-12) 1000 MCG/1 ML VIAL IM ONE (09:30)
[2022-05-13] MEDS ORDERED: ERGOCALCIFEROL 50,000 UNIT(1.25MG) CAP PO SCH (10:00)
[2022-05-13 13:00] VITALS: BP 137/59
[2022-05-13] MEDS ORDERED: LACTULOSE 20Gm/30ML SOLN PO ONE (14:00)
[2022-05-13] MEDS ORDERED: methylPREDNISolone SOD SUCC 125 MG/2 ML VL IV ONE (15:30)
[2022-05-13] MEDS: RIVAROXABAN 10 MG TAB PO SCH (16:33)
[2022-05-13 17:24] VITALS: BP 149/51
[2022-05-13] MEDS: SODIUM FERR GLUC 62.5MG/5ML 125 MG in SODIUM CHL 0.9% 100 ML IV SCH (17:54)
[2022-05-13] MEDS: methylPREDNISolone SOD SUCC 125 MG/2 ML VL IV SCH (21:55)
[2022-05-13 22:00] VITALS: BP 123/70
[2022-05-14] MEDS: MORPHINE SULFATE INJ 2 MG/ml SYRG IV PRN ×2 (03:37→12:40)
[2022-05-14 05:06] VITALS: BP 132/72
[2022-05-14 05:58] LABS: Basophils # (auto) 0 10 ^3/uL (0-0.2); Basophils % (auto) 0.2 % (0.0-2.0); Eosinophils # (auto) 0 10 ^3/uL (0-0.8); Hematocrit 29.5 % (36.0-46.0); Hemoglobin 9.8 g/dL (12.2-16.2); Lymphocytes # (auto) 0.7 10 ^3/uL (0.4-5.4); Lymphocytes % (auto) 10.5 % (10.0-50.0); Mean Corpuscular Hemoglobin 30.2 pg (28.0-32.0); Mean Corpuscular Hgb Conc. 33.1 g/dL (32.0-36.0); Mean Corpuscular Volume 91.3 fL (80.0-100.0); Monocytes # (auto) 0.1 10 ^3/uL (0-1.3); Monocytes % (auto) 1.4 % (0.0-12.0); Neutrophils # (auto) 5.9 10 ^3/uL (1.6-8.6); Neutrophils % (auto) 87.9 % (37.0-80.0); Nucleated Red Blood Cells % 0.1 %; Red Blood Cells 3.23 10^6/uL (4.0-5.20); Red Cell Distribution Width 16.7 % (11.8-14.3); White Blood Cell 6.7 10^3/uL (4.4-10.8)
[2022-05-14] MEDS: methylPREDNISolone SOD SUCC 125 MG/2 ML VL IV SCH (06:08)
[2022-05-14] MEDS: LEVOTHYROXINE SODIUM 25 MCG TAB PO SCH (06:14)
[2022-05-14] MEDS: ACCU-CHEK COMFORT CURVE STRIP VI SCH ×2 (06:14→11:40)
[2022-05-14] MEDS: InsuLIN REG 1unit/0.01ml Soln (100units/ml) SC SCH ×2 (06:17→11:43)
[2022-05-14 06:19] LABS: Calcium 9.3 mg/dL (8.5-10.1); Potassium 4.4 mmol/L (3.5-5.1)
[2022-05-14 06:22] LABS: BUN/Creatinine Ratio 26.7
[2022-05-14 09:00] VITALS: BP 172/82
[2022-05-14] MEDS: cefTRIAXone 1GM/50ML D5W 50 ML IV SCH (09:29)
[2022-05-14] MEDS ORDERED: CYANOCOBALAMIN (B-12) 1000 MCG/1 ML VIAL SUBCUT SCH (10:00)
[2022-05-14] MEDS: METOPROLOL SUCCINATE XL 50 MG TAB PO SCH (10:03)
[2022-05-14] MEDS: FUROSEMIDE 40 MG TAB PO SCH (10:03)
[2022-05-14] MEDS: SODIUM FERR GLUC 62.5MG/5ML 125 MG in SODIUM CHL 0.9% 100 ML IV SCH (12:25)
[2022-05-14 12:44] VITALS: BP 158/83
== END 2022-05-14 14:00 | DRG 551 ==
LOC: ER 12:58 → EDBD 12:58 → OVERFLOW 20:58 → WEST WING 23:54
PROVIDERS: ADMIT Nurse Practitioner; ATTEND Internal Medicine
DX: M48.062 Spinal stenosis, lumbar region with neurogenic claudication (principal); E43 Unspecified severe protein-calorie malnutrition; N17.0 Acute kidney failure with tubular necrosis; S30.0XXA Contusion of lower back and pelvis, initial encounter; N18.31 Chronic kidney disease, stage 3a; E11.22 Type 2 diabetes mellitus with diabetic chronic kidney disease; I12.9 Hypertensive chronic kidney disease with stage 1 through stage 4 chronic kidney disease, or unspecified chronic kidney disease; W01.0XXA Fall on same level from slipping, tripping and stumbling without subsequent striking against object, initial encounter; E78.5 Hyperlipidemia, unspecified; Z20.822 Contact with and (suspected) exposure to COVID-19; D50.9 Iron deficiency anemia, unspecified; M43.16 Spondylolisthesis, lumbar region; Z74.01 Bed confinement status; Z83.3 Family history of diabetes mellitus; Z68.29 Body mass index [BMI] 29.0-29.9, adult; Y93.89 Activity, other specified; Y92.89 Other specified places as the place of occurrence of the external cause; Y99.8 Other external cause status; Z90.49 Acquired absence of other specified parts of digestive tract
CPT/HCPCS: 36415; 70450; 71045; 72131; 72148; 80048; 80053; 81001; 82306; 82607; 82746; 82962; 83036; 83540; 83550; 83615; 84443; 85025; 85045; 86803; 87340; 87426; 96374; 96375; 97163; G0378; J0696; J1815; J1885; J2405

== ENCOUNTER 2022-05-23 08:34 | Inpatient (IN) | payer MEDICARE, OTHER ==
[~2022-05-23] VITALS: Ht 162.6 cm; Wt 90.0 kg
[~2022-05-23 08:34] MED LIST changes: +TRAM-297 PO
[2022-05-23] MEDS ORDERED: HYDROcodone-ACET 10/325MG TAB PO ONE (09:45)
[2022-05-23 10:44] LABS: Eosinophils # (auto) 0.1 10 ^3/uL (0-0.8); Lymphocytes # (auto) 1.9 10 ^3/uL (0.4-5.4); Monocytes # (auto) 0.7 10 ^3/uL (0-1.3); Nucleated Red Blood Cells % 0.1 %
[2022-05-23 10:47] LABS: Basophils # (auto) 0.1 10 ^3/uL (0-0.2); Basophils % (auto) 0.6 % (0.0-2.0); Eosinophils % (auto) 1.3 % (0.0-7.0); Hematocrit 25.2 % (36.0-46.0); Hemoglobin 8.1 g/dL (12.2-16.2); Lymphocytes % (auto) 19.2 % (10.0-50.0); Mean Corpuscular Hemoglobin 29.8 pg (28.0-32.0); Mean Corpuscular Hgb Conc. 32.3 g/dL (32.0-36.0); Mean Corpuscular Volume 92.2 fL (80.0-100.0); Monocytes % (auto) 6.8 % (0.0-12.0); Neutrophils % (auto) 72.1 % (37.0-80.0); Red Blood Cells 2.74 10^6/uL (4.0-5.20); Red Cell Distribution Width 18.4 % (11.8-14.3); White Blood Cell 9.7 10^3/uL (4.4-10.8)
[2022-05-23 11:00] LABS: Albumin 2.6 g/dL (3.4-5.0); Calcium 8.8 mg/dL (8.5-10.1); Potassium 4.7 mmol/L (3.5-5.1)
[2022-05-23 11:09] LABS: BUN/Creatinine Ratio 20.7; Bilirubin, Total 0.7 mg/dL (0.2-1.0); Total Protein 6.1 g/dL (6.4-8.2)
[2022-05-23] MEDS ORDERED: IOHEXOL 300 MG/ML 100ML BOTTLE IJ ONE ×2 (11:42→15:04)
[2022-05-23] MEDS ORDERED: LACTATED RINGER'S 1,000 ML IV ONE (15:15)
[2022-05-23] MEDS ORDERED: ONDANSETRON HCL 4 MG/2 ML VIAL IV ONE (17:00)
[2022-05-23] MEDS ORDERED: MORPHINE SULFATE INJ 2 MG/ml SYRG IV ONE (17:00)
[2022-05-23] MEDS ORDERED: ACETAMINOPHEN 325 MG TAB PO PRN (17:30)
[2022-05-23] MEDS ORDERED: ONDANSETRON HCL 4 MG/2 ML VIAL IV PRN (17:30)
[2022-05-23] MEDS ORDERED: DOCUSATE SOD 100 MG CAP PO PRN (17:30)
[2022-05-23] MEDS ORDERED: MORPHINE SULFATE INJ 2 MG/ml SYRG IV PRN (17:30)
[2022-05-23] MEDS ORDERED: METO1TAB9 PO (17:37)
[2022-05-23] MEDS ORDERED: ALLO300T2 PO (17:37)
[2022-05-23] MEDS ORDERED: LEVO75TA6 PO (17:37)
[2022-05-23] MEDS ORDERED: DEXTROSE (50%) 50ML SYRG IV PRN (18:00)
[2022-05-23 20:27] LABS: Urine Bacteria NONE SEEN /hpf (None Seen); Urine Blood Negative /uL (Negative); Urine Specific Gravity 1.049 (1.001-1.035); Urine WBC None Seen /hpf (0 - 5)
[2022-05-23] MEDS: SODIUM CHLOR 0.9% PF (SALINE LOCK) 10ML VIAL/SYR IV SCH ×2 (22:00→23:16)
[2022-05-23] MEDS: ACCU-CHEK COMFORT CURVE STRIP VI SCH (22:00)
[2022-05-23] MEDS: ATORVASTATIN 20 MG TAB PO SCH (22:03)
[2022-05-23] MEDS: InsuLIN REG 1unit/0.01ml Soln (100units/ml) SC SCH (22:06)
[2022-05-23 23:05] VITALS: BP 131/71
[2022-05-23] MEDS: HYDROcodone-ACET 10/325MG TAB PO PRN (23:15)
[2022-05-24 05:00] VITALS: BP 138/63
[2022-05-24] MEDS: HYDROcodone-ACET 10/325MG TAB PO PRN ×3 (05:50→21:10)
[2022-05-24] MEDS: LEVOTHYROXINE SODIUM 50 MCG TAB PO SCH (05:51)
[2022-05-24] MEDS: InsuLIN REG 1unit/0.01ml Soln (100units/ml) SC SCH ×4 (05:54→21:20)
[2022-05-24] MEDS: ACCU-CHEK COMFORT CURVE STRIP VI SCH ×4 (05:54→21:19)
[2022-05-24 07:25] LABS: Basophils # (auto) 0.1 10 ^3/uL (0-0.2); Basophils % (auto) 0.8 % (0.0-2.0); Eosinophils # (auto) 0.2 10 ^3/uL (0-0.8); Eosinophils % (auto) 2.4 % (0.0-7.0); Hematocrit 25.8 % (36.0-46.0); Hemoglobin 8.5 g/dL (12.2-16.2); Lymphocytes # (auto) 2.3 10 ^3/uL (0.4-5.4); Mean Corpuscular Hemoglobin 30.1 pg (28.0-32.0); Mean Corpuscular Hgb Conc. 32.7 g/dL (32.0-36.0); Monocytes # (auto) 0.8 10 ^3/uL (0-1.3); Monocytes % (auto) 8.6 % (0.0-12.0); Neutrophils # (auto) 6.4 10 ^3/uL (1.6-8.6); Neutrophils % (auto) 65.2 % (37.0-80.0); Red Blood Cells 2.81 10^6/uL (4.0-5.20); Red Cell Distribution Width 17.7 % (11.8-14.3); White Blood Cell 9.8 10^3/uL (4.4-10.8)
[2022-05-24 07:48] LABS: Calcium 8.8 mg/dL (8.5-10.1); Potassium 5.4 mmol/L (3.5-5.1)
[2022-05-24 07:53] LABS: Albumin 2.7 g/dL (3.4-5.0); BUN/Creatinine Ratio 17.2; Bilirubin, Total 0.6 mg/dL (0.2-1.0); Total Protein 5.7 g/dL (6.4-8.2)
[2022-05-24 09:00] VITALS: BP 142/62
[2022-05-24] MEDS ORDERED: SITAGLIPTIN PHOSPHATE 50 MG PO SCH (10:00)
[2022-05-24] MEDS ORDERED: PANTOPRAZOLE 40 MG/10 ML VIAL INJ IV SCH (10:00)
[2022-05-24] MEDS ORDERED: DOCUSATE SOD 100 MG CAP PO ONE (11:15)
[2022-05-24] MEDS ORDERED: LACTULOSE 20Gm/30ML SOLN PO PRN (11:15)
[2022-05-24] MEDS ORDERED: HYDROmorphone HCL 2 MG/ML VL/or syr IV PRN (11:15)
[2022-05-24] MEDS: METOPROLOL SUCCINATE XL 50 MG TAB PO SCH (11:19)
[2022-05-24] MEDS: ALLOPURINOL 300 MG TAB PO SCH (11:19)
[2022-05-24 13:00] VITALS: BP 132/61
[2022-05-24] MEDS: SODIUM CHLOR 0.9% PF (SALINE LOCK) 10ML VIAL/SYR IV SCH ×2 (15:01→21:18)
[2022-05-24 17:00] VITALS: BP 126/65
[2022-05-24] MEDS: DOCUSATE SOD 100 MG CAP PO SCH (17:58)
[2022-05-24] MEDS: ATORVASTATIN 20 MG TAB PO SCH (21:19)
[2022-05-24 22:00] VITALS: BP 119/50
[2022-05-25] VITALS (7 sets, daily range): BP systolic 112–136; BP diastolic 55–85
[2022-05-25] MEDS: HYDROcodone-ACET 10/325MG TAB PO PRN ×3 (05:58→18:44)
[2022-05-25] MEDS: ACCU-CHEK COMFORT CURVE STRIP VI SCH ×4 (05:59→21:15)
[2022-05-25] MEDS: SODIUM CHLOR 0.9% PF (SALINE LOCK) 10ML VIAL/SYR IV SCH ×3 (05:59→21:14)
[2022-05-25] MEDS: InsuLIN REG 1unit/0.01ml Soln (100units/ml) SC SCH ×4 (06:12→21:16)
[2022-05-25] MEDS: LEVOTHYROXINE SODIUM 50 MCG TAB PO SCH (06:13)
[2022-05-25 07:07] LABS: Basophils # (auto) 0.1 10 ^3/uL (0-0.2); Eosinophils # (auto) 0.2 10 ^3/uL (0-0.8); Hemoglobin 8.1 g/dL (12.2-16.2); Lymphocytes # (auto) 1.9 10 ^3/uL (0.4-5.4); Lymphocytes % (auto) 19.6 % (10.0-50.0); Monocytes # (auto) 0.8 10 ^3/uL (0-1.3); Red Cell Distribution Width 17.4 % (11.8-14.3); White Blood Cell 9.6 10^3/uL (4.4-10.8)
[2022-05-25 07:10] LABS: Basophils % (auto) 0.7 % (0.0-2.0); Eosinophils % (auto) 1.8 % (0.0-7.0); Hematocrit 24.3 % (36.0-46.0); Mean Corpuscular Hemoglobin 30.6 pg (28.0-32.0); Mean Corpuscular Hgb Conc. 33.4 g/dL (32.0-36.0); Mean Corpuscular Volume 91.7 fL (80.0-100.0); Neutrophils # (auto) 6.7 10 ^3/uL (1.6-8.6); Neutrophils % (auto) 69.9 % (37.0-80.0); Red Blood Cells 2.65 10^6/uL (4.0-5.20)
[2022-05-25 07:45] LABS: BUN/Creatinine Ratio 17.8; Calcium 8.3 mg/dL (8.5-10.1)
[2022-05-25 07:46] LABS: INR 0.92 (0.9-1.15); Partial Thromboplastin Time 31.6 sec (24.6-33.4)
[2022-05-25] MEDS: METOPROLOL SUCCINATE XL 50 MG TAB PO SCH (09:25)
[2022-05-25] MEDS: DOCUSATE SOD 100 MG CAP PO SCH ×2 (09:25→21:07)
[2022-05-25] MEDS: ALLOPURINOL 300 MG TAB PO SCH (09:25)
[2022-05-25] MEDS ORDERED: OMEP20TA PO (11:29)
[2022-05-25] MEDS: ATORVASTATIN 20 MG TAB PO SCH (21:14)
[2022-05-26] MEDS: HYDROcodone-ACET 10/325MG TAB PO PRN ×4 (00:25→18:40)
[2022-05-26 05:00] VITALS: BP 129/64
[2022-05-26] MEDS: SODIUM CHLOR 0.9% PF (SALINE LOCK) 10ML VIAL/SYR IV SCH ×3 (06:10→21:38)
[2022-05-26] MEDS: ACCU-CHEK COMFORT CURVE STRIP VI SCH ×4 (06:20→21:11)
[2022-05-26] MEDS: InsuLIN REG 1unit/0.01ml Soln (100units/ml) SC SCH ×4 (06:20→21:07)
[2022-05-26] MEDS: LEVOTHYROXINE SODIUM 50 MCG TAB PO SCH (06:20)
[2022-05-26 09:00] VITALS: BP 136/60
[2022-05-26] MEDS: DOCUSATE SOD 100 MG CAP PO SCH ×2 (09:53→21:38)
[2022-05-26] MEDS: ALLOPURINOL 300 MG TAB PO SCH (09:55)
[2022-05-26] MEDS: METOPROLOL SUCCINATE XL 50 MG TAB PO SCH (09:56)
[2022-05-26 13:00] VITALS: BP 117/65
[2022-05-26 16:25] VITALS: BP 120/63
[2022-05-26 20:00] VITALS: BP 135/90
[2022-05-26] MEDS: ATORVASTATIN 20 MG TAB PO SCH (21:39)
[2022-05-26 22:00] VITALS: BP 123/59
[2022-05-27] MEDS: HYDROcodone-ACET 10/325MG TAB PO PRN ×4 (01:31→19:23)
[2022-05-27 05:00] VITALS: BP 125/62
[2022-05-27 05:49] LABS: Basophils # (auto) 0.1 10 ^3/uL (0-0.2); Basophils % (auto) 0.8 % (0.0-2.0)
[2022-05-27 05:50] LABS: Eosinophils # (auto) 0.3 10 ^3/uL (0-0.8); Eosinophils % (auto) 3.2 % (0.0-7.0); Hematocrit 26.4 % (36.0-46.0); Hemoglobin 8.5 g/dL (12.2-16.2); Lymphocytes # (auto) 2.1 10 ^3/uL (0.4-5.4); Lymphocytes % (auto) 21.7 % (10.0-50.0); Mean Corpuscular Hemoglobin 30.5 pg (28.0-32.0); Mean Corpuscular Hgb Conc. 32.1 g/dL (32.0-36.0); Mean Corpuscular Volume 95.1 fL (80.0-100.0); Monocytes # (auto) 0.7 10 ^3/uL (0-1.3); Monocytes % (auto) 7.5 % (0.0-12.0); Neutrophils # (auto) 6.4 10 ^3/uL (1.6-8.6); Neutrophils % (auto) 66.8 % (37.0-80.0); Nucleated Red Blood Cells % 0.1 %; Red Blood Cells 2.78 10^6/uL (4.0-5.20); Red Cell Distribution Width 17.6 % (11.8-14.3); White Blood Cell 9.5 10^3/uL (4.4-10.8)
[2022-05-27 06:03] LABS: Anion Gap 8 (5-15); BUN/Creatinine Ratio 20.4; Blood Urea Nitrogen 20 mg/dL (7-18); Calcium 8.5 mg/dL (8.5-10.1); Carbon Dioxide 23 mmol/L (21-32); Chloride 103 mmol/L (98-107); GFR African American 70 mL/min; GFR Non-African American 58 mL/min; Glucose 101 mg/dL (74-106); Potassium 5.1 mmol/L (3.5-5.1); Sodium 134 mmol/L (136-145)
[2022-05-27] MEDS: SODIUM CHLOR 0.9% PF (SALINE LOCK) 10ML VIAL/SYR IV SCH ×3 (06:35→21:42)
[2022-05-27] MEDS: LEVOTHYROXINE SODIUM 50 MCG TAB PO SCH (06:35)
[2022-05-27] MEDS: InsuLIN REG 1unit/0.01ml Soln (100units/ml) SC SCH ×4 (06:35→21:42)
[2022-05-27] MEDS: ACCU-CHEK COMFORT CURVE STRIP VI SCH ×4 (06:36→21:42)
[2022-05-27] MEDS: METOPROLOL SUCCINATE XL 50 MG TAB PO SCH (08:25)
[2022-05-27] MEDS: ALLOPURINOL 300 MG TAB PO SCH (08:25)
[2022-05-27] MEDS: DOCUSATE SOD 100 MG CAP PO SCH ×2 (08:25→21:42)
[2022-05-27 09:00] VITALS: BP 120/68
[2022-05-27 13:00] VITALS: BP 118/59
[2022-05-27 16:33] VITALS: BP 125/56
[2022-05-27] MEDS: ATORVASTATIN 20 MG TAB PO SCH (21:42)
[2022-05-27 22:00] VITALS: BP 126/75
[2022-05-28] MEDS: HYDROcodone-ACET 10/325MG TAB PO PRN ×3 (01:56→10:46)
[2022-05-28 05:25] VITALS: BP 121/63
[2022-05-28] MEDS: ACCU-CHEK COMFORT CURVE STRIP VI SCH ×2 (06:01→11:36)
[2022-05-28] MEDS: SODIUM CHLOR 0.9% PF (SALINE LOCK) 10ML VIAL/SYR IV SCH ×2 (06:01→14:00)
[2022-05-28] MEDS: LEVOTHYROXINE SODIUM 50 MCG TAB PO SCH (06:06)
[2022-05-28] MEDS: InsuLIN REG 1unit/0.01ml Soln (100units/ml) SC SCH ×2 (06:08→11:37)
[2022-05-28 09:00] VITALS: BP 131/55
[2022-05-28] MEDS: DOCUSATE SOD 100 MG CAP PO SCH (09:13)
[2022-05-28] MEDS: ALLOPURINOL 300 MG TAB PO SCH (09:13)
[2022-05-28] MEDS: METOPROLOL SUCCINATE XL 50 MG TAB PO SCH (09:13)
[2022-05-28 12:32] VITALS: BP 131/55
[2022-05-28 13:00] VITALS: BP 118/62
== END 2022-05-28 16:00 | DRG 551 ==
LOC: ER 08:34 → EDBD 08:34 → OVERFLOW 17:21 → EAST 22:42
PROVIDERS: ADMIT Nurse Practitioner Family; ATTEND Internal Medicine
DX: S32.10XA Unspecified fracture of sacrum, initial encounter for closed fracture (principal); E43 Unspecified severe protein-calorie malnutrition; S32.82XA Multiple fractures of pelvis without disruption of pelvic ring, initial encounter for closed fracture; E03.9 Hypothyroidism, unspecified; E11.9 Type 2 diabetes mellitus without complications; E78.5 Hyperlipidemia, unspecified; I10 Essential (primary) hypertension; D64.9 Anemia, unspecified; N94.89 Other specified conditions associated with female genital organs and menstrual cycle; Z96.652 Presence of left artificial knee joint; E66.9 Obesity, unspecified; Z20.822 Contact with and (suspected) exposure to COVID-19; W18.39XA Other fall on same level, initial encounter; Y93.01 Activity, walking, marching and hiking; Z68.29 Body mass index [BMI] 29.0-29.9, adult; Z83.3 Family history of diabetes mellitus; Z91.81 History of falling; Y92.511 Restaurant or cafe as the place of occurrence of the external cause; Y99.8 Other external cause status; S30.0XXA Contusion of lower back and pelvis, initial encounter
CPT/HCPCS: 36415; 71045; 72132; 74177; 80048; 80053; 81001; 82962; 85025; 85610; 85652; 85730; 86141; 87081; 87426; 96361; 96374; 96375; 97110; 97116; 97163; 97530; C9113; G0378; J1815; J2405

== ENCOUNTER 2022-06-01 06:55 | Inpatient (IN) | payer MEDICARE, OTHER ==
[~2022-06-01] VITALS: Ht 162.6 cm; Wt 74.5 kg
[~2022-06-01 06:55] MED LIST changes: +ALLO300T2 PO; +LEVO75TA6 PO; +METO1TAB9 PO; +OMEP20TA PO
[2022-06-01] MEDS ORDERED: MORPHINE SULFATE INJ 2 MG/ml SYRG IV ONE ×3 (07:30→14:45)
[2022-06-01 08:09] LABS: Basophils # (auto) 0 10 ^3/uL (0-0.2); Basophils % (auto) 0.4 % (0.0-2.0); Eosinophils # (auto) 0 10 ^3/uL (0-0.8); Eosinophils % (auto) 0.1 % (0.0-7.0); Hematocrit 29.7 % (36.0-46.0); Hemoglobin 9.8 g/dL (12.2-16.2); Lymphocytes # (auto) 1.5 10 ^3/uL (0.4-5.4); Lymphocytes % (auto) 14.1 % (10.0-50.0); Mean Corpuscular Hemoglobin 29.8 pg (28.0-32.0); Mean Corpuscular Hgb Conc. 32.9 g/dL (32.0-36.0); Mean Corpuscular Volume 90.6 fL (80.0-100.0); Monocytes # (auto) 0.8 10 ^3/uL (0-1.3); Monocytes % (auto) 7.3 % (0.0-12.0); Neutrophils # (auto) 8.1 10 ^3/uL (1.6-8.6); Neutrophils % (auto) 78.1 % (37.0-80.0); Red Blood Cells 3.28 10^6/uL (4.0-5.20); Red Cell Distribution Width 17.3 % (11.8-14.3); White Blood Cell 10.4 10^3/uL (4.4-10.8)
[2022-06-01 08:30] LABS: Albumin 2.9 g/dL (3.4-5.0); Calcium 8.8 mg/dL (8.5-10.1); Potassium 4.2 mmol/L (3.5-5.1)
[2022-06-01 08:33] LABS: BUN/Creatinine Ratio 21.2; Bilirubin, Total 0.9 mg/dL (0.2-1.0); Total Protein 6.3 g/dL (6.4-8.2)
[2022-06-01] MEDS ORDERED: IOHEXOL 300 MG/ML 100ML BOTTLE IJ ONE (09:32)
[2022-06-01] MEDS ORDERED: SODIUM CHLORIDE 0.9% 1,000 ML IV ONE (12:00)
[2022-06-01] MEDS ORDERED: METOCLOPRAMIDE HCL 5MG/ml INJ 2ml VIAL IV ONE (13:30)
[2022-06-01] MEDS ORDERED: DEXTROSE (50%) 50ML SYRG IV PRN (15:00)
[2022-06-01] MEDS ORDERED: ACETAMINOPHEN 325 MG TAB PO PRN (15:00)
[2022-06-01] MEDS ORDERED: PANTOPRAZOLE 40 MG/10 ML VIAL INJ IV ONE (15:00)
[2022-06-01] MEDS ORDERED: KETOROLAC TROMETH 30 MG/ML 1ML VIAL IV ONE (15:00)
[2022-06-01] MEDS ORDERED: DOCUSATE SOD 100 MG CAP PO ONE (15:30)
[2022-06-01] MEDS ORDERED: LACTULOSE 20Gm/30ML SOLN PO ONE (15:30)
[2022-06-01] MEDS: SODIUM CHLORIDE 0.9% 1,000 ML IV SCH (16:38)
[2022-06-01] MEDS: InsuLIN REG 1unit/0.01ml Soln (100units/ml) SC SCH ×2 (16:48→21:31)
[2022-06-01] MEDS: ACCU-CHEK COMFORT CURVE STRIP VI SCH ×2 (16:48→21:31)
[2022-06-01] MEDS: DOCUSATE SOD 100 MG CAP PO SCH (21:05)
[2022-06-01] MEDS: MORPHINE SULFATE INJ 2 MG/ml SYRG IV PRN (22:59)
[2022-06-02] MEDS: MORPHINE SULFATE INJ 2 MG/ml SYRG IV PRN (04:14)
[2022-06-02] MEDS: InsuLIN REG 1unit/0.01ml Soln (100units/ml) SC SCH ×4 (07:00→21:41)
[2022-06-02] MEDS: ACCU-CHEK COMFORT CURVE STRIP VI SCH ×4 (07:11→21:41)
[2022-06-02 07:30] LABS: Basophils # (auto) 0 10 ^3/uL (0-0.2); Basophils % (auto) 0.6 % (0.0-2.0); Eosinophils # (auto) 0.1 10 ^3/uL (0-0.8); Eosinophils % (auto) 1.5 % (0.0-7.0); Hematocrit 25.9 % (36.0-46.0); Hemoglobin 8.8 g/dL (12.2-16.2); Mean Corpuscular Hemoglobin 30.1 pg (28.0-32.0); Mean Corpuscular Hgb Conc. 33.8 g/dL (32.0-36.0); Monocytes # (auto) 0.4 10 ^3/uL (0-1.3); Monocytes % (auto) 11.4 % (0.0-12.0); Neutrophils # (auto) 2.3 10 ^3/uL (1.6-8.6); Neutrophils % (auto) 59.5 % (37.0-80.0); Red Blood Cells 2.91 10^6/uL (4.0-5.20); Red Cell Distribution Width 17.5 % (11.8-14.3); White Blood Cell 3.8 10^3/uL (4.4-10.8)
[2022-06-02 07:47] LABS: Albumin 2.4 g/dL (3.4-5.0); Calcium 8.2 mg/dL (8.5-10.1)
[2022-06-02 07:54] LABS: BUN/Creatinine Ratio 22.1; Bilirubin, Total 0.7 mg/dL (0.2-1.0); Total Protein 5.7 g/dL (6.4-8.2)
[2022-06-02] MEDS: SODIUM CHLORIDE 0.9% 1,000 ML IV SCH (08:09)
[2022-06-02] MEDS: PANTOPRAZOLE 40 MG/10 ML VIAL INJ IV SCH (09:44)
[2022-06-02] MEDS: DOCUSATE SOD 100 MG CAP PO SCH ×2 (09:51→22:17)
[2022-06-02] MEDS ORDERED: LACTULOSE 20Gm/30ML SOLN PO SCH (10:00)
[2022-06-02] MEDS ORDERED: ENOXAPARIN SOD 40 MG/0.4 ML SYRINGE SC SCH (10:00)
[2022-06-02 17:00] VITALS: BP 123/49
[2022-06-02 22:21] VITALS: BP 156/67
[2022-06-03 04:50] VITALS: BP 138/63
[2022-06-03] MEDS: SODIUM CHLORIDE 0.9% 1,000 ML IV SCH (06:09)
[2022-06-03] MEDS: ACCU-CHEK COMFORT CURVE STRIP VI SCH ×4 (06:09→21:26)
[2022-06-03] MEDS: InsuLIN REG 1unit/0.01ml Soln (100units/ml) SC SCH ×4 (06:09→21:26)
[2022-06-03 06:10] LABS: Basophils # (auto) 0 10 ^3/uL (0-0.2); Basophils % (auto) 0.6 % (0.0-2.0); Eosinophils # (auto) 0.2 10 ^3/uL (0-0.8); Hemoglobin 8.1 g/dL (12.2-16.2); Monocytes # (auto) 0.4 10 ^3/uL (0-1.3); Nucleated Red Blood Cells % 0.1 %
[2022-06-03 06:14] LABS: Hematocrit 25.1 % (36.0-46.0); Lymphocytes # (auto) 1.1 10 ^3/uL (0.4-5.4); Lymphocytes % (auto) 30.5 % (10.0-50.0); Mean Corpuscular Hemoglobin 29.7 pg (28.0-32.0); Mean Corpuscular Hgb Conc. 32.2 g/dL (32.0-36.0); Mean Corpuscular Volume 92.2 fL (80.0-100.0); Monocytes % (auto) 10.1 % (0.0-12.0); Neutrophils % (auto) 52.8 % (37.0-80.0); Red Blood Cells 2.72 10^6/uL (4.0-5.20); Red Cell Distribution Width 17.1 % (11.8-14.3); White Blood Cell 3.7 10^3/uL (4.4-10.8)
[2022-06-03 06:24] LABS: Potassium 4.3 mmol/L (3.5-5.1)
[2022-06-03 06:30] LABS: BUN/Creatinine Ratio 21.3; Calcium 8.6 mg/dL (8.5-10.1)
[2022-06-03 09:00] VITALS: BP 134/66
[2022-06-03] MEDS: PANTOPRAZOLE 40 MG/10 ML VIAL INJ IV SCH (10:13)
[2022-06-03 13:00] VITALS: BP 146/65
[2022-06-03 17:00] VITALS: BP 143/62
[2022-06-03 20:00] VITALS: BP 134/47
[2022-06-03 22:00] VITALS: BP 134/74
[2022-06-03] MEDS ORDERED: ATORVASTATIN 20 MG TAB PO SCH (22:00)
[2022-06-04 05:00] VITALS: BP 150/69
[2022-06-04 05:39] LABS: Basophils # (auto) 0 10 ^3/uL (0-0.2); Basophils % (auto) 0.5 % (0.0-2.0); Eosinophils # (auto) 0.2 10 ^3/uL (0-0.8); Hemoglobin 7.9 g/dL (12.2-16.2); Lymphocytes # (auto) 1.4 10 ^3/uL (0.4-5.4); Monocytes # (auto) 0.4 10 ^3/uL (0-1.3); Neutrophils # (auto) 2.4 10 ^3/uL (1.6-8.6); White Blood Cell 4.4 10^3/uL (4.4-10.8)
[2022-06-04 05:43] LABS: Hematocrit 23.9 % (36.0-46.0); Lymphocytes % (auto) 31.8 % (10.0-50.0); Mean Corpuscular Hemoglobin 30.2 pg (28.0-32.0); Mean Corpuscular Hgb Conc. 32.9 g/dL (32.0-36.0); Mean Corpuscular Volume 91.7 fL (80.0-100.0); Monocytes % (auto) 9.5 % (0.0-12.0); Neutrophils % (auto) 54.2 % (37.0-80.0); Nucleated Red Blood Cells % 0.1 %; Red Cell Distribution Width 17.1 % (11.8-14.3)
[2022-06-04 06:13] LABS: BUN/Creatinine Ratio 20.3; Calcium 8.4 mg/dL (8.5-10.1); Potassium 3.7 mmol/L (3.5-5.1)
[2022-06-04] MEDS: InsuLIN REG 1unit/0.01ml Soln (100units/ml) SC SCH ×2 (06:27→11:30)
[2022-06-04] MEDS: ACCU-CHEK COMFORT CURVE STRIP VI SCH ×2 (06:28→11:30)
[2022-06-04] MEDS ORDERED: LEVOTHYROXINE SODIUM 25 MCG TAB PO SCH (07:00)
[2022-06-04 08:00] VITALS: BP 127/64
[2022-06-04 09:00] VITALS: BP 127/64
[2022-06-04] MEDS: PANTOPRAZOLE 40 MG/10 ML VIAL INJ IV SCH (09:33)
[2022-06-04] MEDS ORDERED: METOPROLOL SUCCINATE XL 50 MG TAB PO SCH (10:00)
[2022-06-04 13:00] VITALS: BP 136/71
[2022-06-04 14:05] VITALS: BP 127/64
== END 2022-06-04 15:10 | DRG 392 ==
LOC: EDBD 06:55 → ER 06:55 → OVERFLOW 14:58 → CENTRAL 06-02 13:40
PROVIDERS: ADMIT Nurse Practitioner Family; ATTEND Internal Medicine Geriatric Medicine
DX: K59.00 Constipation, unspecified (principal); E78.5 Hyperlipidemia, unspecified; I10 Essential (primary) hypertension; E11.9 Type 2 diabetes mellitus without complications; Z20.822 Contact with and (suspected) exposure to COVID-19
CPT/HCPCS: 36415; 71045; 74018; 74177; 80048; 80053; 82962; 83605; 83690; 84443; 84484; 85025; 86141; 87426; 87493; 96361; 96374; 96375; 97110; 97116; 97163; 97530; C9113; G0378; J1885

== ENCOUNTER 2023-12-10 10:18 | Inpatient (IN) | payer MEDICARE, OTHER ==
[~2023-12-10] VITALS: Ht 162.6 cm; Wt 91.7 kg
[2023-12-10] VITALS (7 sets, daily range): BP systolic 160–170; BP diastolic 71–81; PULSE 61–80; RESP 16–20; TEMP 97.5–97.8; O2SAT 95–100
[~2023-12-10 10:18] MED LIST changes: -BRIM0.1S3; +BRIM0.1S3 EACHEYE
[2023-12-10] MEDS: SODIUM CHLORIDE 0.9% 1,000 ML IV ONE (11:33)
[2023-12-10 12:05] LABS: Alanine Aminotransferase 21 U/L (7-40); Albumin 4.2 g/dL (3.2-4.8); Alkaline Phosphatase 129 U/L (46-116); Anion Gap 5 (5-15); Aspartate Aminotransferase 19 U/L (13-40); BUN/Creatinine Ratio 20.4 (10.0-20.0); Blood Urea Nitrogen 20 mg/dL (9-23); Calcium 9.6 mg/dL (8.7-10.4); Carbon Dioxide 25 mmol/L (20-30); Chloride 111 mmol/L (98-107); Glucose 145 mg/dL (74-106); Potassium 4.3 mmol/L (3.5-5.1); Sodium 141 mmol/L (136-145)
[2023-12-10 12:06] LABS: Bilirubin, Total 0.5 mg/dL (0.2-1.0); Total Protein 6.7 g/dL (5.7-8.2)
[2023-12-10 12:18] LABS: Basophils # (auto) 0.1 10 ^3/uL (0-0.2); Eosinophils # (auto) 0.3 10 ^3/uL (0-0.8); Eosinophils % (auto) 2.7 % (0.0-7.0); Hematocrit 33.2 % (36.0-46.0); Hemoglobin 10.7 g/dL (12.2-16.2); Lymphocytes # (auto) 1.5 10 ^3/uL (0.4-5.4); Lymphocytes % (auto) 15.7 % (10.0-50.0); Mean Corpuscular Hemoglobin 30.4 pg (28.0-32.0); Mean Corpuscular Hgb Conc. 32.3 g/dL (32.0-36.0); Monocytes # (auto) 0.7 10 ^3/uL (0-1.3); Monocytes % (auto) 7.1 % (0.0-12.0); Neutrophils # (auto) 6.9 10 ^3/uL (1.6-8.6); Neutrophils % (auto) 73.5 % (37.0-80.0); Platelet Count (auto) 246 10^3/uL (140-450); Red Blood Cells 3.53 10^6/uL (4.0-5.20); Red Cell Distribution Width 16.6 % (11.8-14.3); White Blood Cell 9.3 10^3/uL (4.4-10.8)
[2023-12-10] MEDS: cloNIDine HCL 0.1 MG TAB PO ONE (12:52)
[2023-12-10] MEDS ORDERED: METF-370 PO (12:58)
[2023-12-10] MEDS ORDERED: NITROGLYCERIN 0.4 MG SL TAB SL PRN (17:45)
[2023-12-10] MEDS ORDERED: HYDROcodone-ACET 5/325MG TAB PO PRN (17:45)
[2023-12-10] MEDS ORDERED: ONDANSETRON HCL 4 MG/2 ML VIAL IV PRN (17:45)
[2023-12-10] MEDS ORDERED: DEXTROSE (50%) 50ML SYRG IV PRN (18:00)
[2023-12-10] MEDS: ACCU-CHEK COMFORT CURVE STRIP VI SCH (21:46)
[2023-12-10] MEDS: MELATONIN 5 MG TAB PO ONE (21:55)
[2023-12-10] MEDS: ATORVASTATIN 20 MG TAB PO SCH (21:56)
[2023-12-10] MEDS: InsuLIN REG 1unit/0.01ml Soln (100units/ml) SC SCH (22:02)
[2023-12-11] VITALS (7 sets, daily range): BP systolic 143–163; BP diastolic 59–78; PULSE 69–92; RESP 12–22; TEMP 97.8–99.4; O2SAT 92–99
[2023-12-11] MEDS: hydrALAZINE HCL 20 MG/ML VL IV PRN (01:07)
[2023-12-11] MEDS: MORPHINE SULFATE INJ 2 MG/ml SYRG IV PRN ×2 (05:05→16:49)
[2023-12-11 05:13] LABS: Urine Bacteria None Seen /hpf (None Seen)
[2023-12-11 05:26] LABS: Urine Blood Negative /uL (Negative); Urine Clarity Clear (Clear); Urine Color Yellow (Yellow); Urine Mucus FEW (None Seen); Urine Protein, UAD 1+ (Negative); Urine Specific Gravity 1.023 (1.001-1.035); Urine Urobilinogen Normal (Negative); Urine WBC 34 /hpf (0 - 5); Urine pH 5.5 (5.0-9.0)
[2023-12-11] MEDS: PANTOPRAZOLE 40 MG TAB PO SCH (05:52)
[2023-12-11] MEDS: LEVOTHYROXINE SODIUM 25 MCG TAB PO SCH (05:52)
[2023-12-11 07:00] LABS: Chloride 111 mmol/L (98-107); Sodium 141 mmol/L (136-145)
[2023-12-11 07:01] LABS: Anion Gap 7 (5-15); Calcium 9.1 mg/dL (8.7-10.4); Carbon Dioxide 23 mmol/L (20-30)
[2023-12-11 07:06] LABS: BUN/Creatinine Ratio 17.1 (10.0-20.0); Blood Urea Nitrogen 14 mg/dL (9-23); Glucose 134 mg/dL (74-106)
[2023-12-11 08:10] LABS: Basophils # (auto) 0.1 10 ^3/uL (0-0.2); Eosinophils # (auto) 0.3 10 ^3/uL (0-0.8); Eosinophils % (auto) 4.1 % (0.0-7.0); Hematocrit 29.2 % (36.0-46.0); Hemoglobin 9.6 g/dL (12.2-16.2); Lymphocytes # (auto) 1.2 10 ^3/uL (0.4-5.4); Lymphocytes % (auto) 15.1 % (10.0-50.0); Mean Corpuscular Hemoglobin 31.1 pg (28.0-32.0); Mean Corpuscular Hgb Conc. 32.8 g/dL (32.0-36.0); Mean Corpuscular Volume 94.8 fL (80.0-100.0); Monocytes # (auto) 0.7 10 ^3/uL (0-1.3); Monocytes % (auto) 8.1 % (0.0-12.0); Neutrophils # (auto) 5.8 10 ^3/uL (1.6-8.6); Neutrophils % (auto) 71.7 % (37.0-80.0); Nucleated Red Blood Cells % 0.2 %; Platelet Count (auto) 206 10^3/uL (140-450); Red Blood Cells 3.08 10^6/uL (4.0-5.20); White Blood Cell 8.1 10^3/uL (4.4-10.8)
[2023-12-11] MEDS: ALLOPURINOL 100 MG TAB PO SCH (09:54)
[2023-12-11] MEDS: METOPROLOL SUCCINATE XL 50 MG TAB PO SCH (09:55)
[2023-12-11] MEDS ORDERED: PATIENTS OWN MEDICATION (Allopurinol 1 TAB) PO SCH (10:00)
[2023-12-11] MEDS ORDERED: PATIENTS OWN MEDICATION (Levothyroxine Sodium 1 TAB) PO SCH (10:00)
[2023-12-11] MEDS ORDERED: PATIENTS OWN MEDICATION (Metoprolol Succinate (Metoprolol Succinate Er) 1 TAB) PO SCH (10:00)
[2023-12-11] MEDS: cefTRIAXone 1GM/50ML D5W 50 ML IV ONE (12:06)
[2023-12-11] MEDS: AZITHROMYCIN 500MG/ 250ML 250 ML IV ONE (12:06)
[2023-12-11] MEDS: FUROSEMIDE 20 MG/2 ML VIAL IV ONE (12:07)
[2023-12-11 16:05] LABS: COVID19 ANTIGEN SOFIA FIA NEGATIVE (NEGATIVE); Rapid Influenza A Negative (Negative); Rapid Influenza B Negative (Negative)
[2023-12-11] MEDS ORDERED: OMEP-448 PO (16:37)
[2023-12-12] VITALS (7 sets, daily range): BP systolic 140–169; BP diastolic 61–78; PULSE 86–106; RESP 14–20; TEMP 98.1–99.8; O2SAT 96–100
[2023-12-12] MEDS: LACTULOSE 20Gm/30ML SOLN PO ONE (10:51)
[2023-12-12] MEDS: cefTRIAXone 1GM/50ML D5W 50 ML IV SCH (10:53)
[2023-12-12] MEDS: AZITHROMYCIN 500MG/ 250ML 250 ML IV SCH (12:10)
[2023-12-12] MEDS: MORPHINE SULFATE INJ 2 MG/ml SYRG IV PRN (22:27)
[2023-12-13] VITALS (8 sets, daily range): BP systolic 109–164; BP diastolic 60–76; PULSE 84–95; RESP 16–21; TEMP 98–98.7; O2SAT 9–100
[2023-12-14] VITALS (7 sets, daily range): BP systolic 140–183; BP diastolic 63–89; PULSE 16–99; RESP 16–20; TEMP 97.6–98.6; O2SAT 96–99
[2023-12-15] VITALS (8 sets, daily range): BP systolic 130–165; BP diastolic 45–82; PULSE 81–96; RESP 16–20; TEMP 97.4–99.4; O2SAT 94–100
[2023-12-15] MEDS: DOCUSATE SOD 100 MG CAP PO PRN (08:40)
[2023-12-16 01:00] VITALS: BP 132/80; PULSE 92; RESP 20; TEMP 97.4; O2SAT 92
[2023-12-16 05:00] VITALS: BP 163/68; PULSE 88; RESP 18; TEMP 98.4; O2SAT 95
[2023-12-16 08:00] VITALS: PULSE 86
[2023-12-16 09:00] VITALS: BP 162/70; PULSE 77; RESP 19; TEMP 97.7; O2SAT 94
[2023-12-16 12:37] VITALS: BP 154/70; PULSE 82; RESP 19; TEMP 97.5; O2SAT 95
[2023-12-16 16:48] VITALS: BP 166/58; PULSE 94; RESP 20; TEMP 98.1; O2SAT 100
== END 2023-12-16 18:49 | DRG 871 ==
LOC: ER 10:18 → TELE 17:51 → TELE-EAST 18:36
PROVIDERS: ADMIT Registered Nurse General Practice; ATTEND Family Medicine
PROC: 05HB33Z Insertion of Infusion Device into Right Basilic Vein, Percutaneous Approach (ICD-10-PCS; principal; 2023-12-15)
PROC: B54MZZA Ultrasonography of Right Upper Extremity Veins, Guidance (ICD-10-PCS; 2023-12-15)
DX: A41.9 Sepsis, unspecified organism (principal); J18.9 Pneumonia, unspecified organism; J96.01 Acute respiratory failure with hypoxia; S27.0XXA Traumatic pneumothorax, initial encounter; S22.42XA Multiple fractures of ribs, left side, initial encounter for closed fracture; N39.0 Urinary tract infection, site not specified; Z68.32 Body mass index [BMI] 32.0-32.9, adult; E03.9 Hypothyroidism, unspecified; E11.9 Type 2 diabetes mellitus without complications; E66.9 Obesity, unspecified; E78.00 Pure hypercholesterolemia, unspecified; I16.0 Hypertensive urgency; S50.02XA Contusion of left elbow, initial encounter; K43.9 Ventral hernia without obstruction or gangrene; M19.012 Primary osteoarthritis, left shoulder; Z96.652 Presence of left artificial knee joint; Z83.3 Family history of diabetes mellitus; W18.39XA Other fall on same level, initial encounter; Y93.89 Activity, other specified; Y92.89 Other specified places as the place of occurrence of the external cause; Y99.8 Other external cause status
CPT/HCPCS: 36415; 71045; 71101; 71250; 73070; 73200; 74176; 80048; 80053; 81001; 82962; 84484; 85025; 87040; 87086; 87426; 87804; 93971; 97110; 97116; 97163; 97530; 99291; G0378; J1815